=== PATIENT | male | born 1960 | race Caucasian/White ===

== ENCOUNTER → 2024-12-15 15:30 | Outpatient (REF) | payer BC, SELFPAY | LOC: RCS 15:30 | PROVIDERS: ATTENDING PHYSICIAN Student in an Organized Health Care Education/Training Program; FAMILY PHYSICIAN Family Medicine | DX: Z01.818 Encounter for other preprocedural examination (principal) | CPT/HCPCS: 93005 ==

== ENCOUNTER → 2025-01-15 12:32 | Outpatient (REF) | payer BC, SELFPAY | LOC: RCS 12:32 | PROVIDERS: ATTENDING PHYSICIAN Internal Medicine Cardiovascular Disease; FAMILY PHYSICIAN Family Medicine | DX: I25.10 Atherosclerotic heart disease of native coronary artery without angina pectoris (principal) | CPT/HCPCS: 93306 ==